=== PATIENT | female | born 1975 | race Caucasian/White ===

== ENCOUNTER 2018-10-24 00:22 | Emergency (ER) | payer MEDICAID ==
[~2018-10-24] VITALS: Ht 175.3 cm; Wt 120.2 kg
[2018-10-24 00:30] VITALS: Ht 175.3 cm; Wt 120.2 kg
[2018-10-24 01:20] VITALS: BP 143/103
== END 2018-10-24 01:20 | disposition home or self-care (01) ==
LOC: ED 00:22
DX: F41.9 Anxiety disorder, unspecified (principal); G89.29 Other chronic pain; M25.551 Pain in right hip; R07.89 Other chest pain; E11.9 Type 2 diabetes mellitus without complications